=== PATIENT | male | born 1985 | race Caucasian/White ===

== ENCOUNTER 2020-01-14 10:32 | Emergency (ER) | payer MEDICAID ==
--- NOTE | 2020-01-14 10:59 | EDM.PDOC ---
ED HPI GENERAL MEDICAL PROBLEM - General Chief Complaint: Lower Extremity Injury/Pain Time Seen by Provider: 01/14/20 10:36 Source of Information: Reports: Patient History Limitations: Reports: No Limitations - History of Present Illness INITIAL COMMENTS - FREE TEXT/NARRATIVE: Patient is a 34-year-old male presents today for left knee pain. Patient is walking some steps when he felt his left knee pop as if he moved out of place. Patient states that he still having difficulty putting pressure in the leg since this. Patient denies any direct hits to the leg. Patient has any numbness weakness to the leg. Patient denies any other complaints. L knee Pain Score (Numeric/FACES): 9 - Related Data Allergies Allergy/AdvReac Type Severity Reaction Status Date / Time No Known Allergies Allergy Verified 01/14/20 12:09 Home Meds: Home Meds Anti-Htn 01/14/20 [History] Review of Systems - Review of Systems Review Of Systems: See Below Constitutional: Reports: No Symptoms Eyes: Reports: No Symptoms Ears: Reports: No Symptoms Nose: Reports: No Symptoms Mouth/Throat: Reports: No Symptoms Respiratory: Reports: No Symptoms Cardiovascular: Reports: No Symptoms GI/Abdominal: Reports: No Symptoms Genitourinary: Reports: No Symptoms Musculoskeletal: Reports: Leg Pain Skin: Reports: No Symptoms Neurological: Reports: No Symptoms Psychiatric: Reports: No Symptoms ED EXAM, GENERAL - Physical Exam Exam: See Below Exam Limited By: No Limitations General Appearance: Alert, No Apparent Distress Eye Exam: Bilateral Eye: EOMI, PERRL Respiratory/Chest: No Respiratory Distress Cardiovascular: Regular Rate, Rhythm GI/Abdominal: Normal Bowel Sounds Extremities: Normal Range of Motion, Non-Tender. No: Joint Swelling, Increased Warmth Neurological: Alert, Oriented, Normal Cognition Course - Vital Signs Last Recorded V/S: Last Vital Signs Temp 97.2 F 01/14/20 10:32 Pulse 85 01/14/20 10:32 Resp 17 01/14/20 10:32 BP 145/83 H 01/14/20 10:32 Pulse Ox 98 01/14/20 10:32 - Orders/Labs/Meds Orders: Active Orders 24 hr Category Date Time Status Knee 3V Lt [CR] Stat Exams 01/14/20 10:05 Taken - Re-Assessments/Exams Free Text/Narrative Re-Assessment/Exam: 01/14/20 12:14 XR shows some degenerative changes but no signs of effusions or fractures. Patient will be discharged home to follow-up with orthopedics if needed. Departure - Departure Time of Disposition: 12:14 Disposition: Home, Self-Care 01 Condition: Good Clinical Impression: Left knee sprain - Discharge Information *PRESCRIPTION DRUG MONITORING PROGRAM REVIEWED*: Not Applicable *COPY OF PRESCRIPTION DRUG MONITORING REPORT IN PATIENT ANGELO: Not Applicable Instructions: Knee Sprain, Adult, [id number] Referrals: PCP,None [Primary Care Provider] - Forms: ED Department Discharge Additional Instructions: The following information is given to patients seen in the emergency department who are being discharged to home. This information is to outline your options for follow-up care. We provide all patients seen in our emergency department with a follow-up referral. The need for follow-up, as well as the timing and circumstances, are variable depending upon the specifics of your emergency department visit. If you don't have a primary care physician on staff, we will provide you with a referral. We always advise you to contact your personal physician following an emergency department visit to inform them of the circumstance of the visit and for follow-up with them and/or the need for any referrals to a consulting specialist. The emergency department will also refer you to a specialist when appropriate. This referral assures that you have the opportunity for follow-up care with a specialist. All of these measure are taken in an effort to provide you with optimal care, which includes your follow-up. Under all circumstances we always encourage you to contact your private physician who remains a resource for coordinating your care. When calling for follow-up care, please make the office aware that this follow-up is from your recent emergency room visit. If for any reason you are refused follow-up, please contact the [facility] Emergency Department at and asked to speak to the emergency department charge nurse. Please follow up with your primary care physician. If you do not have a primary care physician, see below: [facility] [address] [place] [id number] [facility] [address] [place] [address] [facility] Professional Building [address] [place] [address], [address] [place] [address] Please follow-up with your primary care physician if needed.. Please keep knee wrapped apply ice and keep elevated. You can also follow-up with orthopedics if pain does not improve the next 3 to 5 days. Sepsis Event Note (ED) - Focused Exam Vital Signs: Vital Signs Temp Pulse Resp BP Pulse Ox 01/14/20 10:32 97.2 F 85 17 145/83 H 98 - My Orders Last 24 Hours: My Active Orders 01/14/20 10:05 Knee 3V Lt [CR] Stat - Assessment/Plan Last 24 Hours: My Active Orders 01/14/20 10:05 Knee 3V Lt [CR] Stat Plan: Patient is a 34-year-old male presents today for left knee pain. On exam patient has no swelling but some tenderness to the medial side of the knee. Patient has good range of motion good strength of the knee. Patient will have x-ray and reassess.
--- NOTE | 2020-01-17 11:02 | CR ---
EXAM DATE: 01/14/20 PATIENT'S AGE: 34 Patient: ROSENDO SIDDIQUI Facility: [facility] Site . Site : 1985 Study: XRay-Knee Left-01/14/2020 10:27:17 AM Ordering Physician: Sudhakar Final Report: Indication: Left knee pain. Technique: Three views of the left knee. Comparison: None Findings: Mild narrowing in the medial compartment is identified. Spurring of the tibial spines is identified. A small joint effusion is identified. Mild narrowing of the patellofemoral articulation is identified. Impression: Mild degenerative change. Dictated by Julianna Mcintosh MD @ Jan 14 2020 10:31AM Signed by: Julianna Mcintosh MD @01/14/2020 10:32:27 AM (Electronic Signature) Report Signed by Proxy. [facility]
== END 2020-01-14 12:38 | disposition home or self-care (01) ==
LOC: MW.ED 10:32
DX: S83.92XA Sprain of unspecified site of left knee, initial encounter (principal); I10 Essential (primary) hypertension; X58.XXXA Exposure to other specified factors, initial encounter
CPT/HCPCS: 73562-26-LT; 73562-LT; 99283; 99283-25